=== PATIENT | male | born 1950 | race Caucasian/White ===

== ENCOUNTER 2019-05-31 20:32 | Emergency (ER) | payer MEDICARE ==
[~2019-05-31] VITALS: Ht 162.6 cm; Wt 54.4 kg
[2019-05-31 20:48] VITALS: Ht 162.6 cm; Wt 54.4 kg
[2019-05-31 21:17] LABS: BASOPHIL % 0.3 % (0-2); PLATELET COUNT 237 x10^3mcL (130-400)
[2019-05-31 21:28] LABS: CALCIUM 9.3 mg/dL (8.5-10.1); CARBON DIOXIDE 28.9 mmol/L (21-32); CHLORIDE SERUM 91 mmol/L (98-107); CREATININE SERUM 0.8 mg/dL (0.7-1.3); GFR1 > 60 mL/min; GLUCOSE SERUM 293 mg/dL (74-106); POTASSIUM SERUM 3.4 mmol/L (3.5-5.1); SODIUM SERUM 134 mmol/L (136-145)
[2019-05-31] MEDS ORDERED: LOVASTATIN20 MG PO (21:31)
[2019-05-31] MEDS ORDERED: ZESTRIL5 MG PO (21:31)
[2019-05-31] MEDS ORDERED: ASPIR 8181 MG PO (21:31)
[2019-05-31] MEDS ORDERED: FLO4 PO (21:31)
[2019-05-31] MEDS ORDERED: GLU850 PO (21:31)
[2019-05-31 21:32] LABS: ALBUMIN 3.5 g/dL (3.4-5.0); ALKALINE PHOSPHATASE 122 U/L (46-116); ALT/SGPT 43 U/L (16-63); AST/SGOT 47 U/L (15-37); BILIRUBIN TOTAL 0.4 mg/dL (0.20-1.00); LIPASE 242 IU/L (73-393); MAGNESIUM 1.6 mg/dL (1.8-2.4); TOTAL PROTEIN, SERUM 7.8 g/dL (6.4-8.2)
[2019-05-31] MEDS ORDERED: FLUOXETINE HYDR20 M2 PO (21:32)
[2019-05-31] MEDS ORDERED: PANTOPRAZOLE SO40 M1 PO (21:32)
[2019-05-31] MEDS ORDERED: LIPITOR40 MG PO (21:32)
[2019-05-31] MEDS ORDERED: CEPHALEXIN500 MG (21:32)
[2019-05-31 21:35] LABS: RED CELL DISTRIBUTION WIDTH 15.9 % (11.5-14.5)
[2019-05-31 23:22] LABS: UA SPECIFIC GRAVITY <=1.005 (1.005-1.035); microscopic required? YES; urine erythrocyte TRACE (NEGATIVE)
[2019-06-01 05:29] VITALS: BP 138/65
== END 2019-06-01 05:29 | disposition short-term general hospital (02) ==
LOC: ED 20:32
PROVIDERS: Emergency Medicine
DX: F10.129 Alcohol abuse with intoxication, unspecified (principal); R19.7 Diarrhea, unspecified; E11.65 Type 2 diabetes mellitus with hyperglycemia; E83.42 Hypomagnesemia; E87.1 Hypo-osmolality and hyponatremia; Y90.8 Blood alcohol level of 240 mg/100 ml or more
CPT/HCPCS: 87046; 87046-59; G0480; J3411; J3475; J7030; Q0092

== ENCOUNTER 2019-06-13 22:15 | Emergency (ER) | payer MEDICARE ==
[~2019-06-13] VITALS: Ht 170.2 cm; Wt 67.6 kg
[~2019-06-13 22:15] MED LIST: ASPIR 8181 MG PO; CEPHALEXIN500 MG; FLO4 PO; FLUOXETINE HYDR20 M2 PO; GLU850 PO; LIPITOR40 MG PO; LOVASTATIN20 MG PO; PANTOPRAZOLE SO40 M1 PO; ZESTRIL5 MG PO
[2019-06-13 22:24] VITALS: Ht 170.2 cm; Wt 67.6 kg
[2019-06-13 22:54] LABS: BASOPHIL % 0.4 % (0-2); PLATELET COUNT 580 x10^3mcL (130-400); RED CELL DISTRIBUTION WIDTH 14.9 % (11.5-14.5)
[2019-06-13 23:07] LABS: CARBON DIOXIDE 29.4 mmol/L (21-32); CHLORIDE SERUM 88 mmol/L (98-107); CREATININE SERUM 0.8 mg/dL (0.7-1.3); GFR1 > 60 mL/min; GLUCOSE SERUM 202 mg/dL (74-106); POTASSIUM SERUM 3.9 mmol/L (3.5-5.1); SODIUM SERUM 133 mmol/L (136-145)
[2019-06-13 23:12] LABS: ALKALINE PHOSPHATASE 74 U/L (46-116); ALT/SGPT 38 U/L (16-63); AST/SGOT 31 U/L (15-37); BILIRUBIN TOTAL 0.3 mg/dL (0.20-1.00); TOTAL PROTEIN, SERUM 7.2 g/dL (6.4-8.2)
[2019-06-13 23:13] LABS: ALBUMIN 3.3 g/dL (3.4-5.0)
[2019-06-14 00:34] LABS: AMPHETAMINE QUAL UR NONE DETECTED (See below)
[2019-06-14 01:25] VITALS: BP 115/44
== END 2019-06-14 01:25 | disposition home or self-care (01) ==
LOC: ED 22:15
PROVIDERS: Specialist
DX: F10.129 Alcohol abuse with intoxication, unspecified (principal); E11.9 Type 2 diabetes mellitus without complications
CPT/HCPCS: G0480; Q0092

== ENCOUNTER 2019-07-14 21:16 | Emergency (ER) | payer MEDICARE ==
[~2019-07-14] VITALS: Ht 157.5 cm; Wt 49.9 kg
[2019-07-14 21:24] VITALS: Ht 157.5 cm; Wt 49.9 kg
[2019-07-15 07:10] VITALS: BP 130/60
== END 2019-07-15 07:10 | disposition home or self-care (01) ==
LOC: ED 21:16
DX: F10.129 Alcohol abuse with intoxication, unspecified (principal); E11.9 Type 2 diabetes mellitus without complications

== ENCOUNTER 2019-07-24 14:55 | Inpatient (IN) | payer MEDICARE ==
[~2019-07-24] VITALS: Ht 165.1 cm; Wt 47.7 kg
--- NOTE | 2019-07-24 15:00 | NUR ---
PER MEDIC, NEIGHBORS HADN'T SEEN PT FOR DAYS. PD WAS ON SCENE, APPARENTLY CALLED FOR WELFARE CHECK. PT WAS FOUND ON FLOOR OF ROOM INCONTINENT OF URINE & STOOL, COVERED IN ANTS & FLIES. PER MEDIC, ROOM WAS FILTHY, W/ VISIBLY DIRTY TOMLIN, & DIRTY STICKY FLOOR. PER MEDIC, THERE WERE LITERALLY OVER A 100 BEER BOTTLES & CANS LITTERING THE FLOOR OF THE ROOM. PER VISIT HISTORY, PT HAS BEEN HERE THREE TIMES RECENTLY, TWICE IN MAY & WAS TRANSFERRED TO [facility], & ONCE IN & WAS DC'ED & REFERRED TO [facility]. PER OLD H&P'S, PT CAME IN BEFORE W/ ETOH & COVERED W/ FECES. ONE VISIT HE WAS PLACED ON A HOLD FOR GRAVELY DISABLED.
--- NOTE | 2019-07-24 15:10 | NUR ---
CALLED APS TO FILE REPORT, ROSALVA Mata/ RYAN. INTAKE #[id number]. FAXED REPORT TO [phone].
--- NOTE | 2019-07-24 15:29 | NUR ---
AGENCY DOCUMENTATION DONE BY Staff Name/Title - : DILIP JEAN BAPTISTE JR/JESSE [employer] User ID - : [id number] Agency Name - : [employer] Time Documented - From - : 699 To - : [phone]
--- NOTE | 2019-07-24 15:29 | NUR ---
ASSUMED PATIENT CARE, NURSING ASSESSMENT COMPLETED. SEEN AND EVALUATED BY EDGAR ALVAREZ COMPLETED.
--- NOTE | 2019-07-24 15:30 | NUR ---
ORIGINAL APS REPORT TO CASE MANAGEMENT. COPY ON CHART.
[2019-07-24 15:41] LABS: BASOPHIL % 0.3 % (0-2); PLATELET COUNT 280 x10^3mcL (130-400)
[2019-07-24 15:42] LABS: RED CELL DISTRIBUTION WIDTH 14.9 % (11.5-14.5)
[2019-07-24 15:59] LABS: ALBUMIN 2.6 g/dL (3.4-5.0); ALKALINE PHOSPHATASE 127 U/L (46-116); ALT/SGPT 78 U/L (16-63); AST/SGOT 93 U/L (15-37); BILIRUBIN TOTAL 1.13 mg/dL (0.20-1.00); CALCIUM 9.4 mg/dL (8.5-10.1); CARBON DIOXIDE 18.7 mmol/L (21-32); CHLORIDE SERUM 103 mmol/L (98-107); CHOLESTEROL 213 mg/dL (<200); CREATININE SERUM 3.2 mg/dL (0.7-1.3); GFR1 21 mL/min; POTASSIUM SERUM 4.2 mmol/L (3.5-5.1); SODIUM SERUM 151 mmol/L (136-145); TOTAL PROTEIN, SERUM 7.5 g/dL (6.4-8.2)
[2019-07-24 16:17] LABS: GLUCOSE SERUM 700 mg/dL (74-106)
[2019-07-24 16:24] LABS: UA SPECIFIC GRAVITY 1.015 (1.005-1.035); microscopic required? YES; urine erythrocyte NEGATIVE (NEGATIVE)
[2019-07-24 16:33] LABS: AMPHETAMINE QUAL UR NONE DETECTED (See below)
--- NOTE | 2019-07-24 19:17 | NUR ---
REPORT RECEIVED FROM GELY MOLINA
[2019-07-24 19:23] LABS: MAGNESIUM 2.9 mg/dL (1.8-2.4); PHOSPHOROUS 7.3 mg/dL (2.5-4.9)
[2019-07-24 19:24] LABS: CHOLESTEROL/HDL RATIO 7.2
[2019-07-24 19:30] LABS: T3 TOTAL 0.43 ng/mL
[2019-07-24 19:35] LABS: FREE T4 1.01 ng/dL (0.76-1.46); FREE THYROXINE INDEX 2.1 ug/dL (1.4-4.5); T4(THYROXINE) 5.4 ug/dL (4.7-13.3)
--- NOTE | 2019-07-24 19:40 | NUR ---
SPOKE WITH HITESH MOLIAN FROM [facility], REPORT GIVEN.
--- NOTE | 2019-07-24 20:06 | NUR ---
RECEIVED PT FROM ED VIA [facility], CAME IN DUE TO ALOC AND CONFUSION. PT HAS HIS EYES OPEN, DOES NOT FOLLOW COMMANDS, NON-VERBAL, UNABLE TO ASSESS PT'S ORIENTATION. PUPILS ARE FIXED. NO SOB NOTED, LUNG SOUNDS DIMINISHED ON AUSCULTATION, O2 MTW=647% ON 2LPM/NC. NO S/S OF CHEST PAIN/PRESSURE, SINUS TACHYCARDIA ON THE MONITOR, HR AT 110. NO S/S OF ABDOMINAL DISCOMFORT. BOWEL AND URINE INCONTINENT. W/ CESAR CATHETER DRAINING W/ CLOUDY YELLOW URINE. W/ MULTIPLE SCABS ON THE KNEES AND ELBOWS, W/ MULTIPLE SKIN TEARS ON THE RIGHT HIP, SACRAL-COCCYGEAL, BUTTOCKS AND BACK, W/ BLANCHABLE ERYTHEMA ON THE FEET, 2 DRY CLOSED WOUNDS ON THE LEFT UPPER POSTERIOR LEG, AND SCAB ON THE TOP OF THE HEAD. NOTED PT HAS DRY STOOLS, PT CLEANED AND MADE COMFORTABLE. SIDE RAILS UPX2. CALL LIGHT ON REACH. HOB ELEVATED AT 30 DEG. BED ALARM ON. ENDORSED TO PRIMARY NURSE AUSTIN FOR CONTINUITY OF CARE
[2019-07-24 20:25] VITALS: BP 132/68
[2019-07-24 20:34] VITALS: Ht 165.1 cm; Wt 47.7 kg
--- NOTE | 2019-07-24 20:40 | NUR ---
CALLED PT'S DAUGHTER TO OBTAIN FURTHER INFORMATION BUT THERE WAS NO ANSWER, LEFT A VOICEMAIL TO CALL THE UNIT. PRIMARY NURSE AUSTIN MADE AWARE
--- NOTE | 2019-07-24 21:42 | NUR ---
RECEIVED PT FROM ED, NO ACUTE DISTRESS. UNABLE TO ASSESS ORIENTATION, NONVERBAL. RESPONDS TO VERBAL STIMULI. ORIENTED PT TO ROOM. BED IN LOWEST POSITION, SIDE RAILS UP X2, CALL LIGHT WITHIN REACH. WILL CONTINUE TO MONITOR.
--- NOTE | 2019-07-24 21:56 | NUR ---
BLOOD GLUCOSE 460, DR BROWER AWARE OF RESULT. NO NEW ORDERS AT THIS TIME. WILL CONTINUE TO MONITOR.
--- NOTE | 2019-07-25 00:11 | NUR ---
BLOOD GLUCOSE 447, DR BROWER INFORMED. PER DR BROWER, MEDICATED PT PER SLIDING SCALE. PT CURRENTLY RESTING IN BED, NO ACUTE DISTRESS. WILL CONTINUE TO MONITOR.
[2019-07-25 04:38] VITALS: BP 120/55
--- NOTE | 2019-07-25 06:26 | NUR ---
PT SLEPT PERIODICALLY THROUGHOUT NIGHT, NO ACUTE DISTRESS. ALL NEEDS MET AND ATTENDED TO. NO SIGNIFICANT CHANGES. IV PATENT AND INTACT. BED IN LOWEST POSITION, SIDE RAILS UP X2, CALL LIGHT WITHIN REACH. WILL ENDORSE CARE TO ONCOMING NURSE.
[2019-07-25 06:27] LABS: BASOPHIL % 0.1 % (0-2); PLATELET COUNT 213 x10^3mcL (130-400)
[2019-07-25 06:39] LABS: RED CELL DISTRIBUTION WIDTH 14.9 % (11.5-14.5)
[2019-07-25 06:48] LABS: CALCIUM 8.3 mg/dL (8.5-10.1); CARBON DIOXIDE 27.2 mmol/L (21-32); CREATININE SERUM 2.5 mg/dL (0.7-1.3); MAGNESIUM 1.9 mg/dL (1.8-2.4); PHOSPHOROUS 1.9 mg/dL (2.5-4.9); POTASSIUM SERUM 3.4 mmol/L (3.5-5.1)
--- NOTE | 2019-07-25 08:28 | NUR ---
PT IS AWAKE AND ALERT BUT APPEARS WEAK; ABLE TO MAKE VERBAL SOUNDS WHEN ASKED; ABLE TO MAKE LIGHT LILLI HAND CREW LEADER AND RAISE HANDS ON COMMAND; ABLE TO MAKE EYE CONTACT BUT UNABLE TO MAKE NEEDS KNOWN; NO SOB; O2 2L/NC IN USE; INVOLUNTARY LILLI HAND MOVT/SHAKING NOTED; SKIN GENERALLY DRY AND WARM TO TOUCH; GENERALIZED MULTIPLE SCABS/SKIN TEARS ON BUE AND BLE; ABSENCE MANAGEMENT CONSULTANT; LILLI FOOT DRY, SCALY AND WITH BLANCHABLE REDNESS. NSS AT 150 ML/HR INFUSING VIA LAC; SITE PATENT AND WITHOUT INFILTRATION. SL ON THE RW INTACT. ON TELE 12; CESAR TO GRAVITY DARINING YELLOW URINE AND CLOUDY SEDIMENTS NOTED ON TUBING. SAFETY AND FALL PRECAUTION REINFORCED; WILL CONTINUE TO MONITOR STATUS.
--- NOTE | 2019-07-25 08:40 | NUR ---
DR. GARCIA AWARE OF LACTIC 3.8
[2019-07-25 08:55] VITALS: BP 112/56
--- NOTE | 2019-07-25 09:56 | NUR ---
STARTED NSS 1000 ML AT 1000 ML/HR PER MD ORDER
--- NOTE | 2019-07-25 11:00 | NUR ---
OPTIFOAM DSG APPLIED ON PT'S SACRAL, BACK, RT HIP AN LOWER EXTRMITY OPEN SORES. AIR MATTRESS PLACED BY SEISMIC INTERPRETER. LILLI HEEL PROTECTORS APPLIED.
--- NOTE | 2019-07-25 11:30 | NUR ---
PT WAS SEEN F0R DYSPHAGIA. PT HAD MILD POCKETING AND COUGH FOR HONEY THICK LIQUID. PT HAD POOR WILIAM MOTOR COORDINATION. RECOMMENDATION ALTERNATE MODE OF FEEDING. REEVALUATION.
--- NOTE | 2019-07-25 11:34 | NUR ---
ACCUCHECK 61 ON LH; RECHECK ON THE RH IS 63. DR. GARCIA IS MADE AWARE; D50 IV PRN GIVEN FOR LOW BS; PT IS UNABLE TO TAKE ANYTHING PO. IS AWARE PT IS GIVEN D50. PT IS ASYMPTOMATIC.
[2019-07-25 11:43] VITALS: BP 129/57
--- NOTE | 2019-07-25 11:49 | NUR ---
PER CLARIFICATION DR. GARCIA, THE IVF D5W AT 100 ML/HR NEEDS TO START TODAY AFTER NSS 1000 ML BOLUS.
--- NOTE | 2019-07-25 11:55 | NUR ---
RECHECK BS AFTER D50 IV PRN IS 217; NOTED SL ON THE RW OUT AND PT IS HOLDING IT; CATH IS INTACT.
--- NOTE | 2019-07-25 12:00 | NUR ---
PT IS ABLE TO STATE HIS NAME AND EASY TO UNDERSTAND, FOLLOW SIMPLE COMMANDS HAND FISHING ROD TRIMMER AND RAISING ARMS; VERY WEAK FORCE/STRENGTH.
--- NOTE | 2019-07-25 14:00 | NUR ---
ATTEMPTED X1 TO INSERT NGT THROUGH LT NARE BUT UNSUCCESSFUL;
--- NOTE | 2019-07-25 14:35 | NUR ---
NGT INSERTED SUCCESSFULLY BY JESSE ANGELO ON THE RT NARE WITH FR. 16. KUB ORDERED TO CHECK PLACEMENT
[2019-07-25 16:22] VITALS: BP 135/54
[2019-07-25 16:25] LABS: CALCIUM 7.8 mg/dL (8.5-10.1); CREATININE SERUM 1.8 mg/dL (0.7-1.3); POTASSIUM SERUM 3.3 mmol/L (3.5-5.1)
--- NOTE | 2019-07-25 16:30 | NUR ---
DR. JSOE CEDILLO FOR THE CRITICAL RESULT OF NA 162 AND BUN 78.
--- NOTE | 2019-07-25 17:18 | NUR ---
NGT ADVANCED 8 CM PER KUB IMPRESSION; ANOTHER KUB ORDERED TO CHECK NGT PALCEMENT.
--- NOTE | 2019-07-25 18:32 | NUR ---
NO NEW ACUTE CHANGES IN STATUS. REMAIN GENERALLY WEAK, ABLE TO STATE NAME SOMETIMES, UNABLE TO MAKE NEEDS KNOWN. TOTAL CARE. NO SOB; WILL CONTINUE TO MONITOR STATUS.
--- NOTE | 2019-07-25 19:21 | NUR ---
NGT FEEDING STARTED WITH VITAL HIGH PROTEIN AT INITIAL RATE OF 50 ML/HR. RESIDUAL IS NOTED ONLY ON THE TUBING BUT APPEARS COFFEE GROUND; BM X1 TODAY WITH DARK BROWN PASTY STOOLS PER FURNACE COOLER.
[2019-07-25 19:47] VITALS: BP 132/59
--- NOTE | 2019-07-25 20:13 | NUR ---
PT CURRENTLY RESTING IN BED, NO ACUTE DISTRESS. NONVERBAL, DROWSY BUT ARROUSABLE, RESPONDS TO VERBAL STIMULI. TELE #12 SHOWING SINUS RHYTHM. PULSES PALPABLE IN ALL EXTREMITIES, NO EDEMA NOTED. LUNG SOUNDS DIMINISHED BILATERALLY, NO RESPIRATORY DISTRESS NOTED. O2 VIA NC AT 2L. BOWEL SOUNDS ACTIVE, LAST BM 07/25/19. NGT TO RIGHT NARE, CONNECTED TO TUBE FEEDING OF VITAL HIGH PROTEIN, NO RESIDUAL NOTED. CESAR CATHETER IN PLACE, CLOUDY STEPHY URINE NOTED. GENERALIZED WEAKNESS. HEEL PROTECTORS IN PLACE. BILATERAL FEET BLANCHABLE ERRYTHEMA, MATY. BILATERAL ELBOW AND KNEE SCABS, GLASS SANDER BELT. MULTIPLE SKIN TEARS, ABRASIONS, AND SCABS TO BACK, MATY. SACRAL AND BUTTOCK SKIN TEARS, OPTIFOAM DRESSING CDI. ABRASION TO TOP OF HEAD. IV PATENT AND INTACT. BED IN LOWEST POSITION, SIDE RAILS UP X2, CALL LIGHT WITHIN REACH. WILL CONTINUE TO MONITOR.
--- NOTE | 2019-07-26 00:39 | NUR ---
PT CURRENTLY RESTING IN BED, NO ACUTE DISTRESS. WILL CONTINUE TO MONITOR.
--- NOTE | 2019-07-26 01:20 | NUR ---
NO RESIDUAL NOTED IN TUBE FEEDING, FEEDING ADVANCED TO 60ML/HR. WILL CONTINUE TO MONITOR.
[2019-07-26 04:48] VITALS: BP 116/56
--- NOTE | 2019-07-26 06:04 | NUR ---
PT SLEPT PERIODICALLY THROUGHOUT NIGHT, NO ACUTE DISTRESS. ALL NEEDS MET AND ATTENDED TO. NO SIGNIFICANT CHANGES. IV PATENT AND INTACT. BED IN LOWEST POSITION, SIDE RAILS UP X2, CALL LIGHT WITHIN REACH. AIR MATTRESS IN PLACE. 20ML OF RESIDUAL NOTED IN TUBE FEEDING, FEEDING ADVANCED TO GOAL OF 70ML/HR. WILL ENDORSE CARE TO ONCOMING NURSE.
[2019-07-26 06:29] LABS: BASOPHIL % 0.3 % (0-2); PLATELET COUNT 165 x10^3mcL (130-400)
[2019-07-26 07:01] LABS: CALCIUM 7.8 mg/dL (8.5-10.1); CARBON DIOXIDE 30.1 mmol/L (21-32); CREATININE SERUM 1.4 mg/dL (0.7-1.3); MAGNESIUM 1.6 mg/dL (1.8-2.4); PHOSPHOROUS 1.4 mg/dL (2.5-4.9); POTASSIUM SERUM 3.5 mmol/L (3.5-5.1)
--- NOTE | 2019-07-26 07:30 | NUR ---
PT ENDORSE TO ME THIS MORNING. LAYING IN BED RESTING, HOB ELEVATED 40DEG. BREATHING EVEN AND UNLABORED ON 2L NC/ LUNGS DIM. NO ACUTE RESP DISTRESS OR SOB NOTED. AA/O X1. TELE 12 ST NOTED AT 106, NO SIGN OF CP OR PRESSURE. PT REMAINS ON TUBE FEEDING TO RIGHT NARE, INFUSING AT 70ML/HR /GOAL. TOTAL RESIDUAL OF 30ML/ HR/ COFFEE GROUND COLOR NOTED/ REPLACED/ DR. GARCIA MADE AWARE. BOWEL SOUNDS NOTED. CESAR INTACT AND PATENT/ CLOUDY /DARK URINE NOTED/ PATENT. HELL PROTECTORS APPLIED/ AIR MATTRESS INPALCE/ TURN Q 2 HOURS. REDNESS TO BILATERAL FEET, MULT ABRASIONS SCABS, SKIN TEARS TO BUE & BLE AND SACRUM. NEW IV TO THE RFA INTACT AND PATENT/ NO REDNESS OR SWELLING NOTED. CALL LIGHT IN REACH. BED IN LOW POSITION. BY NURSING STATION. WILL CONTINUE TO MONITOR.
[2019-07-26 07:38] VITALS: BP 115/64
--- NOTE | 2019-07-26 11:11 | NUR ---
NEW IV TO THE RFA 20 G /INTACT AND PATENT.
[2019-07-26 11:51] VITALS: BP 119/60
--- NOTE | 2019-07-26 15:23 | NUR ---
Initial Nutrition Assessment Dx: ALOC PMHx: Unknown PSHx: Unknown Labs: (07/26) Na 162H, BG 198H, BUN 58H, Cr 1.4H, Ca 7.8L, P 1.4L, AST 93H, ALT 78H TG 319H, Chol 216H, Lipase 627H, A1c 8.8H, All POC glucose readings >180 mg/dl x 2 days Meds: Colace, D50%, Humulin, Matthews, Zosyn Current Nutrition Support TF at ml/hr via NGT with Vital AF 1.2 @ goal rate 70 mL/Hr with 50 ml FWF Q4H. I/O: (07/26) 3760/1150 +2610 (07/25) 1350/700 +650 TF intake: (07/26) 660 mL Residuals: 30 mL today, coffee ground color Ht: 65" in Wt: 105# (47.7 kg) BMI: 17.5 (Underweight) IBW: 136# %IBW: 77% UBW: Unknown BEDSCALE WT: 133# today; possible discrepancy of weights Age: 68 y/o elderly male Food Allergies: NKFA Skin: Redness to BLE, tears to BUE, back, sacral region, buttocks, scrotum Joseph: 12 Edema: None GI: Last BM x 1 today Pt. admitted with AMS and found unresponsive/disheveled per H and P documentations. ST swallowing evaluation conducted on yesterday, with recommendations for pt. to remain NPO d/t unresponsiveness and inability to swallow. FNS consult/trigger was received for underweight/malnourished. Continues to be non-verbal today, although awake during visit. NGT to right nare present with Vital AF 1.2 running at goal rate 70 mL/Hr with FWF 50ml Q4H. Measured bedscale weight 133# today; obtained 2 times during visit. Documented weight 105#; possible discrepancy with weight. Problem with: N/V/D/C None Problems with: Chewing: Y Swallowing: Y Recent wt change: wt. history unknown Vitamin/Supplement use: unknown Physical activity: None d/t chronic/acute medical condition Education not provided during visit; pt. unable to comprehend/not appropriate d/t AMS. Estimated Nutritional Needs Based on current body weight 47.7 kg Energy: 8356-1585 kcal/d (35-40 kcal/kg-weight gain promotion) Protein: 72-95 g/d (1.5-2.0 g/kg)-skin integrity/wound healing Fluid: 8835-4954 ml/d (1 ml/kcal) or per doctor Nutrition Diagnosis 1. Increased nutrient needs r/t increased metabolic demands AEB altered skin integrity noted with multiple skin impairments. 2. Underweight r/t chronic/acute medical condition and associated malnutrition AEB measured BMI 17.5 kg/m2. (Based on documented weight) Intervention 1. Decrease Vital AF 1.2 to 60 mL/Hr to prevent overfeeding, as current regimen provides 132% estimated recommended g protein. Modified regimen provides 1728 kcal and 108 g protein, which meets 100% upper estimated kcal and protein needs. 2. Consider increasing FWF d/t to hypernatremia to 100 mL FWF Q4H. Monitor/Evaluate Goal: TF intake at least 75% of estimated needs Monitor: TF intake, TF tolerance, Labs, GI function F/U in 2-3 days as high risk (07/28-07/29)
--- NOTE | 2019-07-26 15:28 | NUR ---
Intervention 1. Decrease Vital AF 1.2 to 60 mL/Hr to prevent overfeeding, as current regimen provides 132% estimated recommended g protein. Modified regimen provides 1728 kcal and 108 g protein, which meets 100% upper estimated kcal and protein needs. 2. Consider increasing FWF d/t to hypernatremia to 100 mL FWF Q4H.
[2019-07-26 16:59] VITALS: BP 122/49
--- NOTE | 2019-07-26 17:01 | NUR ---
PER DR. GARCIA NEW TUBE FEEDING ORDERS ARE AT 60ML/HR GOAL RATE, 100ML OF WATER FLUSH Q 4HRS, OREDERS FOLLOWED THROUGH.
--- NOTE | 2019-07-26 18:35 | NUR ---
NO ACUTE CHANGES. NO ACUTE RESP DISTRESS OR SOB NOTED/ REMAINS ON 2L NC TOLERATING WELL. TUBE FEEDING CURRENTLY AT GOAL= 60ML/ H2O FLUSH AT 100ML Q [address] GARCIA ORDERS. IV TO THE RENE AND RFA INTACT AND PATENT. RENE INFUSING AT 125ML/HR. CESAR INTACT AND PATENT/ CESAR CARE DONE. WILL ENDORSE TO INCOMING RN.
--- NOTE | 2019-07-26 19:42 | NUR ---
PT RECIEVED AWAKE ALERT AND CONFUSED,REG RESP NO SOB V/S STABLE,IV INFUSING WELL WITH SITE PATENT AND INTACT,PT ON AIR LOW NMATTRESS AND HAS SIDE RAILS PADDED,PT HAS A F/C TO GRAVITY WITH STEPHY URINE OUTPUT,PT HAS MITTENS TO LILLI UPPER EXTRE,PT HAS NGT TYO TRH LT NARES WITH FEEDING AT 60 CC/HR,PT TOLERATING IT WELL,PT HAS BOOTS TO THE LEGS,SKIN IS WARM AND DRY TO TOUCH WITH MULTIPLE WOUNDS AND WITH DRESSING INTACT,HOB,CALL LIGHT EASY REACHED AND WILL CONTINUE TO MONITOR.
[2019-07-26 20:21] VITALS: BP 120/57
--- NOTE | 2019-07-26 22:08 | NUR ---
PT REPOSITION WAS MADE COMFORTABLE IN BED,HOB AND WILL CONTINUE TO MONITOR.
--- NOTE | 2019-07-26 23:32 | NUR ---
PT TOLERATING FEEDING WELL NO RESIDUAL AND PATIENT REPOSSITION AND WILL CONTINUE TO MONITOR.
--- NOTE | 2019-07-27 02:30 | NUR ---
PT REPOSIITON AND MADE COMFORTABLE IN BED,PT RESTING AT THIS TIME,WILL CONTINUE TO MONITOR.
[2019-07-27 05:39] VITALS: BP 134/42
--- NOTE | 2019-07-27 06:29 | NUR ---
PT HAD A RESTING NIGHT NO CHANGE AT THIS TIME,PT HAD LOOSE TARRY BLACK STOOLS WILL ENDORSED TO THE AM NURSE,NO CHANGE AT THIS TIME,WILL CONTINUE TO MONITOR.
[2019-07-27 07:05] LABS: PLATELET COUNT 136 x10^3mcL (130-400)
--- NOTE | 2019-07-27 07:10 | NUR ---
RECEIVED REPORT FROM JAZMÍN MOLINA AT BEDSIDE, PT IN BED IN NO ACUTE DISTRESS
[2019-07-27 07:20] LABS: BASOPHIL % 0 % (0-2); RED CELL DISTRIBUTION WIDTH 14.9 % (11.5-14.5)
--- NOTE | 2019-07-27 07:25 | NUR ---
PT IN BED, IN NO ACUTE DISTRESS, NON-VERBAL, ABLE TO FOLLOWED COMMAND, UNABLE TO MAKE NEEDS KNOW AT THIS TIME, CALM AND COPPERATIVE WITH POC, PERRLA, NO REDNESS/DRAINAGE, NO FACIAL DROOP, REPS EVEN, 2L/MIN, NC, DIM BLL, 96%, TELE #12, HR-96 AT THIS TIME, NSR, ABD FLAT, NGT TO (R) NARE, PATENT AND INFUSING WELL, VITAL 1.0 AT 60ML/HR, FWF 100ML/ Q4H, BS ACTIVE X 4, LAST BM THIS AM, SEMI-LOOSE STOOL, SEE SKIN ASSESSMENT, FC, 16FR, DRAINED WELL, STEPHY COLOR, PALP PULSES, CAP REFILL < 3S, BEDREST, INCONTINENT, IV PATENT AND INFUSING WELL, DRESSING CDI, LALM, HELL PROTECTORS, SCDs, TURN Q2H, ALL NEEDS ADDRESSED AT THIS TIME, SAFETY PROTOCOL, SEIZURE PROTOCOL, CONTINUE TO MONITOR
--- NOTE | 2019-07-27 07:26 | NUR ---
PT ON SOFT WRIST RESTRAIN BILATERAL, CHECKED Q2H PER PROTOCOL, DR MCKAY MADE AWARE
[2019-07-27 08:23] LABS: CALCIUM 8.1 mg/dL (8.5-10.1); CARBON DIOXIDE 30.2 mmol/L (21-32); CHLORIDE SERUM 112 mmol/L (98-107); GFR1 > 60 mL/min; GLUCOSE SERUM 446 mg/dL (74-106); MAGNESIUM 1.8 mg/dL (1.8-2.4); PHOSPHOROUS 1.9 mg/dL (2.5-4.9); SODIUM SERUM 151 mmol/L (136-145)
[2019-07-27 08:38] VITALS: BP 144/68
[2019-07-27 08:54] LABS: POTASSIUM SERUM 2.7 mmol/L (3.5-5.1)
--- NOTE | 2019-07-27 09:08 | NUR ---
DR MCKAY MADE AWARE OF K-2.7, NEW ORDER OBTAINED, PT MADE AWARE, CHARGE NURSE DAVE MADE AWARE, CONTINUE TO MONITOR
--- NOTE | 2019-07-27 09:46 | NUR ---
AM MED GIVEN PER MD ORDER VIA EMAR, TOLERATED WELL, NO ASE NOTED AT THIS TIME, PT IN BED IN NO ACUTE DISTRESS, CONTINUE TO MONITOR
--- NOTE | 2019-07-27 12:23 | NUR ---
SEEN BY DR MEAD, NEW ORDER OBTAINED, PT MADE AWARE, CONTINUE TO MONITOR
--- NOTE | 2019-07-27 14:46 | NUR ---
PHARMACIST CALLED AND MADE AWARE OF ZOSYN IVPB ORDER, SAID WILL CHECK THE SYSTEM AND BRING MED LATER, PT MADE AWARE, CONTINUE TO MONITOR
--- NOTE | 2019-07-27 14:49 | NUR ---
Initial Nutrition Assessment: 243T/A JERMAINE LOGAN IA HR Dx: ALOC, Rhabdo, dehydration PMHx: Unknown PSHx: Unable to obtain/Pat non verbal Labs: NA 162H, BG 198H, BUN 58H, CREAT 1.4H, TG 319H, CHOL 216H, LDL 144H, A1C 8.8H, MG 1.6L, P 1.4L Meds: Colace, D 50%, Humulin, vancomycin, Zofran, zosyn Diet: TF (NG) Vital AF 1.2 @ 50 ml/hr, goal 60 ml/hr, advance 10 cc Q6H, FWF 100 Q4H + prosource PO intake since admission: NPO Ht: 165.1 cm (65") Wt: 47.6 kg (104#) BMI: 17.5 kg/m2 Bed scale: 47.6 kg IBW: 136# (62 kg) %IBW: 76 UBW: unable to access Age: 68/M Food Allergies: NKFA Skin: multiple scabs, LLE wounds to back Joseph: 12 Edema: none GI: Last BM: Pt is a 68-year-old male, brought in by EMS with police, for evaluation of altered mental status today. RD Note (07/27): Patient was awake but seemed confused. TF Vital AF 1.2 was running @ 60 ml/hr, FWF 100 cc Q4H. Per RN Thi, pt is tolerating tube feedings without any residuals. Problem with: N/V/D/C: none per RN Problems with: Chewing: Swallowing: yes on TF Current appetite: unable to access Recent wt change: unable to access %wt change: n/a Vitamin/Supplement use: unable to access Special diet at home: unable to access Physical activity: unable to access Nutrition education given: not appropriate at this time Food-drug interactions: Colace: high fiber w/ 7558-7295 ml fluid/day Education given: n/a Estimated Nutritional Needs Based on current body weight (47.6 kg) Energy:5511-1341 kcal/day (35-40 kcal/kg for malnutrition, wound healing) Protein: 57-67 g/day (1.2-1.4 g/kg for malnutrition, wound healing) Fluid: 9367-3424 mL/day (1 mL/kcal) Nutrition Diagnosis: 1. Malnutrition related to poor PO since several days, psycho-social issues as evidenced by BMI 17.5 kg/m2. Intervention 1. Recommend continuing Vital AF 1.2 @ 60 ml/hr, FWF 100 cc Q4H. This provides 1730 kcal and 108g protein. This will meet 100% calorie and protein needs of the patient. Discussed recommendations to Dr. Rodriguez. Monitor/Evaluate Goal: PO intake at least 75% of estimated needs Monitor: PO intake, Labs, GI function F/U in 2-3 days as high risk 07/29-
--- NOTE | 2019-07-27 14:55 | NUR ---
PHYSICAL THERAPY DAILY NOTES CO-SIGN All documentation done by the Construction Administrator for 07/27/19 has been reviewed. I agree with the documentation. Reviewed/Co-Signed by: Shaista Snow PT Documentation Done by: SHELBY AYERS PTA
[2019-07-27 15:30] LABS: CALCIUM 8.2 mg/dL (8.5-10.1); CARBON DIOXIDE 34.8 mmol/L (21-32); CHLORIDE SERUM 116 mmol/L (98-107); CREATININE SERUM 0.9 mg/dL (0.7-1.3); GFR1 > 60 mL/min; GLUCOSE SERUM 168 mg/dL (74-106); MAGNESIUM 1.6 mg/dL (1.8-2.4); SODIUM SERUM 157 mmol/L (136-145)
--- NOTE | 2019-07-27 15:42 | NUR ---
DR MCKAY MADE AWARED OF NEW LAB ORDER OF K-3.0 AND MG-1.6 AND NA-157, NEW ORDER OBTAINED, PT MADE AWARE, CHARGE NURSE DAVE MADE AWARE, CONTINUE TO MONITOR
--- NOTE | 2019-07-27 17:31 | NUR ---
PT IN BED, IN NO ACUTE DISTRESS, NON-VERBAL, SKIN C/D/W, NGT INFUSING WELL, FC CATH DRAINED WELL, LIGHT YELLOW URINE, IV PATENT AND INFUSIG WELL, DRESSING CDI, NO FACIAL DROOP, RESTING, TURN Q2H, LALM, SCDs, ALL NEEDS ADDRESSED AT THIS TIME, SAFETY PROTOCOL FOLLOWED, WILL ENROSE TO ONCOMING RN
[2019-07-27 18:57] VITALS: BP 121/48
--- NOTE | 2019-07-27 19:34 | NUR ---
PT ON SOFT WRIST RESTRAIN, CHECKED Q2H PER PROTOCOL, ENDORSE TO ROMELIA MOLINA
--- NOTE | 2019-07-27 21:00 | NUR ---
GOT A CALL FROM [place] AND SPOKE WITH GI SENIOR LINUX ADMINISTRATOR AND STATED THAT PATIENT IS GOING TO [facility] TELE 320 AND ACCEPTING DOCTOR AND TEL.NO TO GIVE REPORT [phone] AND TO ASK [facility] FOR REPORT AND BEING TRANSPORTED BY ALS AND BE WATCH ADJUSTER AT 2215. GI SENIOR LINUX ADMINISTRATOR GIVE HER PHONE NO.IF ANY QUESTIONS TEL.[phone]. CALLED TO AND MADE AWARE OF THE TRANSFER AND ROMELIA MOLINA MADE AWARE.
--- NOTE | 2019-07-27 21:14 | NUR ---
RECEIVED REPORT FROM DAY NURSE. PT. IS AWAKE AND ORIENTED TO SELF AND PLACE. SPEECH IS SLOW, CONVERSATION APPROPRIATE AT THIS TIME, THOUGH PATIENT DOES NOT INITIATE CONVERSATION. PT. ON 2L/NC. RESP. EVEN, UNLABORED. NO SOB NOTED. BREATH SOUNDS DIMINISHED BLL. ABD. SOFT AND ROUND, BOWEL SOUNS ACTIVE. PT. INCONTINENT OF STOOL. F/C DRAINING TO GRAVITY CLEAR YELLOW URINE. NG TUBE TO RT. NARE IN-SITU. VITAL TUBE FEEDING AT 60CC/HR. PT. TOLERATING WELL AT THIS TIME. LESS THAN 15CC RESIDUAL NOTED AND RETURNED. LILLI HEEL PROTECTORS ON. LILLI HEELS. MULTIPLE SKIN ABRASIONS AND SKIN BREAKS NOTED THROUGHOUT PT.'S BODY, IN DIFFERENT STAGES. LARGE ABRASION AND BREAK IN SKIN RT. BACK/SCAPULA REGION AND MID BACK. RT. HIP REGION AND COCCYX SACRAL REGION WITH PRESSURE SORE/ABRASIONS. WOUNDS CLEANED AND NEW DRSG, OPTIFORM, PLACED. PT. MADE COMFORTABLE.
[2019-07-27 21:33] VITALS: BP 123/48
[2019-07-27 21:36] VITALS: BP 123/48
--- NOTE | 2019-07-27 21:58 | NUR ---
RECEIVED CALL FOR PT. TO BE TRANSPORTED OUT TO [facility] PER INSURANCE, BED NOW AVAILABLE. DAISY FROM [facility], GIVEN VITAL SIGNS FOR TRANSPORT TEAM. [facility] TRANSPORT TEAM HERE FOR [facility]. REPORT GIVEN.
--- NOTE | 2019-07-27 22:44 | NUR ---
REPORT GIVEN TO LUKE DOVE RN. PT. TRANSPORTED VIA [facility] W/ [facility] SUPPORT TEAM. IV HEPLOCKED, CESAR INTACT, NG TUBE CLAMPED. DAUGHTER OLIVIA KRAUSE MADE AWARE OF PT.'S TRANSFER. PT. GOING TO ROOM 320 TELE, [facility].
--- NOTE | 2019-07-28 08:00 | NUR ---
WOUND CARE CONSULT NOT DONE, PT. DISCHARGED.
== END 2019-07-27 22:40 | disposition short-term general hospital (02) | DRG 871 ==
LOC: ED 14:55 → DU 18:35
PROVIDERS: Emergency Medicine; ADMIT Internal Medicine
DX: R57.1 Hypovolemic shock (principal); E11.00 Type 2 diabetes mellitus with hyperosmolarity without nonketotic hyperglycemic-hyperosmolar coma (NKHHC); G93.41 Metabolic encephalopathy; N17.0 Acute kidney failure with tubular necrosis; K85.90 Acute pancreatitis without necrosis or infection, unspecified; E43 Unspecified severe protein-calorie malnutrition; M62.82 Rhabdomyolysis; K92.2 Gastrointestinal hemorrhage, unspecified; E87.0 Hyperosmolality and hypernatremia; Z68.1 Body mass index [BMI] 19.9 or less, adult; E11.65 Type 2 diabetes mellitus with hyperglycemia; R74.0 Nonspecific elevation of levels of transaminase and lactic acid dehydrogenase [LDH]; Z79.84 Long term (current) use of oral hypoglycemic drugs; Z79.82 Long term (current) use of aspirin
CPT/HCPCS: 82962; 83880; 84439; 90658; 90732; 92526-GN; 92610-GN; 97110-GP; 97530-GP; C9113; G0378; G0480; J0696; J1815; J2310; J2543; J3370; J3475; J3480; J3490; J7030; J7042; J7060; J7070; Q0092